=== PATIENT | male | born 1960 | race Caucasian/White ===

== ENCOUNTER → 2018-03-17 17:48 | Outpatient (CLI) | payer OTHER, SELFPAY ==
--- NOTE | 2018-03-17 17:51 | DI.RAD.S_ITS ---
PROCEDURE: XR ELBOW LT MIN 3V INDICATIONS: Left elbow pain TECHNIQUE: 3 views of the elbow were acquired. COMPARISON: None. FINDINGS: Bones: No fractures or dislocations. No suspicious bony lesions. There is a prominent traction spur is at the olecranon process involving the insertion of the triceps tendon. Soft tissues: No elbow joint effusion. There is prominence of soft tissues overlying the olecranon process, likely bursal effusion. No suspicious soft tissue calcifications. IMPRESSION: 1. Prominent traction spur olecranon process. 2. Probable olecranon bursitis. Dictated by: Artie Gracia M.D. on 03/18/2018 at 8:33 Approved by: Artie Garcia M.D. on 03/18/2018 at 8:34
== END ==
PROVIDERS: Visit Provider Physician Assistant
DX: M25.522 Pain in left elbow (principal); M77.8 Other enthesopathies, not elsewhere classified
CPT/HCPCS: 73080